=== PATIENT | female | born 1975 ===

== ENCOUNTER 2016-11-03 09:11 | Emergency (ER) | payer MEDICAID, OTHER ==
[2016-11-03 09:11] VITALS: BMI 33.6
[2016-11-03 09:18] VITALS: BP 101/62; PULSE 68; RESP 16; TEMP 97.1; O2SAT 99
--- NOTE | 2016-11-03 09:56 | ED PDOC ---
HPI: Abdomen Time Seen by Provider: 11/03/16 09:27 Chief Complaint (Nursing): Abdominal Pain Chief Complaint (Provider): Abdominal Pain History Per: Patient History/Exam Limitations: no limitations Onset/Duration Of Symptoms: Hrs Outside of [place] travel?: No Current Symptoms Are (Timing): Still Present Location Of Pain/Discomfort: Periumbilical Quality Of Discomfort: "Pain" Associated Symptoms: denies: Nausea, Vomiting Additional Complaint(s): Triny Borja, a 41 year old female, presents to the ED complaining of abdominal pains he has been experiencing since last night. The patient reports that along with her abdominal pain she does have a light back pain. She states that she urinating normally and denies vaginal bleeding, nausea, vomiting and breast tenderness. Patient is seen at [facility] practice clinic. Abnormal Vaginal Bleeding: No Last Menstral Period: September 21 : 2 Para: 2 Miscarriage: 0 Past Medical History Reviewed: Historical Data, Nursing Documentation, Vital Signs Vital Signs: Last Vital Signs Temp 97.1 F L 11/03/16 09:15 Pulse 68 11/03/16 09:15 Resp 16 11/03/16 09:15 BP 101/62 11/03/16 09:15 Pulse Ox 99 11/03/16 09:59 - Medical History PMH: Chronic Kidney Disease Denies: HIV - Surgical History Surgical History: No Surg Hx - Family History Family History: States: Unknown Family Hx - Immunization History Hx Tetanus Toxoid Vaccination: No Hx Influenza Vaccination: No Hx Pneumococcal Vaccination: No - Home Medications Home Medications: Ambulatory Orders Medication Instructions Recorded Vit37/Iron/Folic Acid 1 ctb PO DAILY #30 ctb 11/03/16 [Prenata Chewable Tablet] - Allergies Allergies/Adverse Reactions: Allergies Allergy/AdvReac Type Severity Reaction Status Date / Time No Known Allergies Allergy Verified 10/23/14 14:08 Review of Systems Gastrointestinal: Positive for: Abdominal Pain. Negative for: Nausea, Vomiting Genitourinary Female: Negative for: Vaginal Bleeding Musculoskeletal: Positive for: Back Pain Physical Exam - Reviewed Nursing Documentation Reviewed: Yes Vital Signs Reviewed: Yes - Physical Exam Appears: Positive for: Non-toxic, No Acute Distress Cardiovascular/Chest: Positive for: Regular Rate, Rhythm, Chest Non Tender. Negative for: Tachycardia Respiratory: Positive for: Normal Breath Sounds. Negative for: Wheezing, Respiratory Distress Gastrointestinal/Abdominal: Positive for: Bowel Sounds, Soft, Tenderness (Mild suprapubic tenderness). Negative for: Guarding, Rebound Neurologic/Psych: Positive for: Alert, Oriented, Gait - ECG O2 Sat by Pulse Oximetry: 99 (RA) Pulse Ox Interpretation: Normal Medical Decision Making Medical Decision Makin Initial Impression: 41 year old female presenting with abdominal pain Initial Impression: * Upreg * Udip * Reevaluation Scribe Attestation Documented by Ewa Wilder acting as a scribe for Italia Drake MD. Provider Attestation: All medical record entries made by the Scribe were at my direction and personally dictated by me. I have reviewed the chart and agree that the record accurately reflects my personal performance of the history, physical exam, medical decision making, and the department course for this patient. I have also personally directed, reviewed, and agree with the discharge instructions and disposition. Disposition - Clinical Impression Clinical Impression: test positive - Patient ED Disposition Is Patient to be Admitted: No Doctor Will See Patient In The: Office Counseled Patient/Family Regarding: Diagnosis, Need For Followup, Rx Given - Disposition Referrals: [facility] [Outside] [facility] [Outside] [facility] [Outside] Disposition: Routine/Home Disposition Time: 09:45 Condition: STABLE Prescriptions: Vit37/Iron/Folic Acid [Prenata Chewable Tablet] 1 ctb PO DAILY #30 ctb Instructions: (ED) Print Language: YAKUT - POA Present On Arrival: None
== END 2016-11-03 10:12 | disposition home or self-care (01) ==
LOC: H.ER 09:11
DX: Z32.01 Encounter for pregnancy test, result positive (principal)

== ENCOUNTER 2016-11-05 12:10 | Emergency (ER) | payer OTHER ==
[2016-11-05 12:15] VITALS: TEMP 98
[2016-11-05 12:16] VITALS: BMI 38.7
[2016-11-05 13:04] LABS: BASO # 0.1 K/uL (0.0-0.2); BASO % 0.8 % (0.0-2.0); EOS # 0.2 K/uL (0.0-0.7); EOS % 1.9 % (0.0-4.0); HEMOGLOBIN 10.4 g/dL (12.0-16.0); LYMPH # 2.2 K/uL (1.0-4.3); LYMPH % 23.6 % (20.0-40.0); MEAN CELL VOLUME 69.2 fl (81.0-99.0); MEAN CORPUSCULAR HEMOGLOBIN 21.8 pg (27.0-31.0); MEAN CORPUSCULAR HGB CONC 31.6 g/dL (33.0-37.0); MEAN PLATELET VOLUME 9.8 fl (7.2-11.7); MONO # 0.7 K/uL (0.0-0.8); MONO % 7.1 % (0.0-10.0); NEUT # 6.2 K/uL (1.8-7.0); NEUT % 66.6 % (50.0-75.0); NRBC % 0.1 % (0.0-0.0); RBC 4.78 Mil/uL (3.80-5.20); RED CELL DISTRIBUTION WIDTH 20.5 % (11.5-14.5); WHITE BLOOD COUNT 9.3 K/uL (4.8-10.8)
[2016-11-05 13:32] LABS: INR 1.1 (0.9-1.2); PARTIAL THROMBOPLASTIN TIME 32.2 Seconds (25.6-37.1); PROTHROMBIN TIME 12.1 Seconds (9.8-13.1)
[2016-11-05 13:45] LABS: ALB/GLOB RATIO 1.3 (1.0-2.1); ALBUMIN 4.4 g/dL (3.5-5.0); ALT/SGPT 53 U/L (9-52); AST/SGOT 39 U/L (14-36); BLOOD UREA NITROGEN 11 mg/dl (7-17); CALCIUM 8.8 mg/dL (8.4-10.2); GFR AFRICAN-AMERICAN > 60; GFR NON-AFRICAN AMERICAN > 60
--- NOTE | 2016-11-05 13:54 | ED PDOC ---
HPI: Abdomen Time Seen by Provider: 11/05/16 12:23 Chief Complaint (Nursing): Abdominal Pain Chief Complaint (Provider): Abdominal Pain History Per: Patient History/Exam Limitations: no limitations Onset/Duration Of Symptoms: Hrs Current Symptoms Are (Timing): Still Present Additional Complaint(s): 41 y/o female, at 6 weeks who presents to the emergency department with a lower abdominal pain and vaginal bleeding only when wiping since this morning, 11/05/2016. Denies care, hematuria, and dysuria. PMD: Dr.Steven Zay Reyna MD Past Medical History Reviewed: Historical Data, Nursing Documentation, Vital Signs Vital Signs: Last Vital Signs Temp 98 F 11/05/16 12:24 Pulse 71 11/05/16 12:24 Resp 20 11/05/16 12:24 BP 124/72 11/05/16 12:24 Pulse Ox 100 11/05/16 15:37 - Medical History PMH: Chronic Kidney Disease Denies: HIV - Surgical History Surgical History: No Surg Hx - Family History Family History: States: Unknown Family Hx - Immunization History Hx Tetanus Toxoid Vaccination: No Hx Influenza Vaccination: No Hx Pneumococcal Vaccination: No - Home Medications Home Medications: Ambulatory Orders Medication Instructions Recorded Vit37/Iron/Folic Acid 1 ctb PO DAILY #30 ctb 11/03/16 [Prenata Chewable Tablet] - Allergies Allergies/Adverse Reactions: Allergies Allergy/AdvReac Type Severity Reaction Status Date / Time No Known Allergies Allergy Verified 10/23/14 14:08 Review of Systems ROS Statement: Except As Marked, All Systems Reviewed And Found Negative Gastrointestinal: Positive for: Abdominal Pain (Lower region) Genitourinary Female: Positive for: Vaginal Bleeding (only with wiping). Negative for: Dysuria, Hematuria Physical Exam - Reviewed Nursing Documentation Reviewed: Yes Vital Signs Reviewed: Yes - Physical Exam Appears: Positive for: Non-toxic, No Acute Distress Head Exam: Positive for: ATRAUMATIC, NORMAL INSPECTION Skin: Positive for: Normal Color, Warm, Dry Eye Exam: Positive for: Normal appearance. Negative for: Conjunctival injection Neck: Positive for: Normal, Supple Cardiovascular/Chest: Positive for: Regular Rate, Rhythm. Negative for: Murmur Respiratory: Positive for: Normal Breath Sounds. Negative for: Accessory Muscle Use, Respiratory Distress Gastrointestinal/Abdominal: Positive for: Soft, Tenderness (Suprapubic tenderness). Negative for: Normal Exam, Guarding, Rebound Neurologic/Psych: Positive for: Alert, Oriented - Laboratory Results Result Diagrams: 11/05/16 12:55 11/05/16 12:55 - ECG O2 Sat by Pulse Oximetry: 100 (RA) Pulse Ox Interpretation: Normal - CT Scan/US Pelvic ultrasound Other Rad Studies (CT/US): Radiology Report Reviewed (1. Single intrauterine gestational sac with mean gestational age of 5 weeks and 6 days. Estimated date of delivery by ultrasound is 07/02/2017. The ultrasound dates correspond with the clinical dates. heart rate is not documented on the current examination likely related to early gestation. Clinical and imaging follow-up is advised to confirm viability. 2. 3.3 cm intramural posterior fundal fibroid to the right. 3. 9 x 8 x 11 mm presumable perigestational/subchorionic hemorrhage superior to the gestational sac. Clinical and imaging follow-up is advised.) Medical Decision Making Medical Decision Making: Time: 12:39 Initial impression: Abdominal Pain Initial plan: --OB Preg 1st Tri & OB transvag (US) --Prothrombin Time --Partial Thromboplastin --ED Urine --ED Urine Dipstick --COMP Metabolic Panel --Beta-HCG, Quantitative --Type and Screen --Reevaluation Time: 15:30 --Ultrasound FINDINGS: UTERUS: Gestational sac: Single intrauterine gestation. pole and yolk sac are identified. Heart rate: Not documented on the current examination. age (Ultrasound estimated): 5 weeks and 6 days Date of delivery (Ultrasound estimated) : 07/02/2017 Uterus measures 10.0. x 6.5 x 7.4 cm. There is in a 9 x 8 x 11 mm anechoic area superior to the gestational sac. There is a 3.3 x 3.0 x 2.6 cm intramural posterior fundal fibroid on the right. CERVIX: Long and closed. No cervical abnormality seen. RIGHT OVARY: Measures 2.9 x 3.4 x 2.8 cm. No mass lesion. Normal flow. There is a 2.2 cm corpus luteum cyst. LEFT OVARY: Not visualized. FREE FLUID: There is small amount of free fluid in the pelvis. OTHER FINDINGS: None. IMPRESSION: 1. Single intrauterine gestational sac with mean gestational age of 5 weeks and 6 days. Estimated date of delivery by ultrasound is 07/02/2017. The ultrasound dates correspond with the clinical dates. heart rate is not documented on the current examination likely related to early gestation. Clinical and imaging follow-up is advised to confirm viability. 2. 3.3 cm intramural posterior fundal fibroid to the right. 3. 9 x 8 x 11 mm presumable perigestational/subchorionic hemorrhage superior to the gestational sac. Clinical and imaging follow-up is advised. Time: 15:34 Upon provider reevaluation patient is feeling better, is medically stable, and requires no further treatment in the ED at this time. Patient will be discharged home. Counseling was provided and all questions were answered regarding diagnosis and need for follow [facility] with [facility]. There is agreement to discharge plan. Return if symptoms persist or worsen. Clinical Impression: Threatened and subchorionic hemorrhage in first trimester Scribe Attestation: Documented by Bianca Ro, acting as a scribe for Shari Gay MD. Provider Scribe Attestation: All medical record entries made by the Scribe were at my direction and personally dictated by me. I have reviewed the chart and agree that the record accurately reflects my personal performance of the history, physical exam, medical decision making, and the department course for this patient. I have also personally directed, reviewed, and agree with the discharge instructions and disposition. Disposition - Clinical Impression Clinical Impression: Threatened , Subchorionic hemorrhage in first trimester - Patient ED Disposition Is Patient to be Admitted: No Counseled Patient/Family Regarding: Diagnosis, Need For Followup - Disposition [facility]errals: [facility] [Outside] Disposition: Routine/Home Disposition Time: 15:34 Condition: STABLE Additional Instructions: TYLENOL NEEDED FOR PAIN. Instructions: Threatened Miscarriage (ED), Subchorionic Hemorrhage (ED) Print Language: IRANIAN
--- NOTE | 2016-11-05 15:32 | US ---
PROCEDURE: OB Pelvic Ultrasound HISTORY: Abdominal pain COMPARISON: None available. FINDINGS: UTERUS: Gestational sac: Single intrauterine gestation. pole and yolk sac are identified. Heart rate: Not documented on the current examination. age (Ultrasound estimated): 5 weeks and 6 days Date of delivery (Ultrasound estimated) : 07/02/2017 Uterus measures 10.0. x 6.5 x 7.4 cm. There is in a 9 x 8 x 11 mm anechoic area superior to the gestational sac. There is a 3.3 x 3.0 x 2.6 cm intramural posterior fundal fibroid on the right. CERVIX: Long and closed. No cervical abnormality seen. RIGHT OVARY: Measures 2.9 x 3.4 x 2.8 cm. No mass lesion. Normal flow. There is a 2.2 cm corpus luteum cyst. LEFT OVARY: Not visualized. FREE FLUID: There is small amount of free fluid in the pelvis. OTHER FINDINGS: None. IMPRESSION: 1. Single intrauterine gestational sac with mean gestational age of 5 weeks and 6 days. Estimated date of delivery by ultrasound is 07/02/2017. The ultrasound dates correspond with the clinical dates. heart rate is not documented on the current examination likely related to early gestation. Clinical and imaging follow-up is advised to confirm viability. 2. 3.3 cm intramural posterior fundal fibroid to the right. 3. 9 x 8 x 11 mm presumable perigestational/subchorionic hemorrhage superior to the gestational sac. Clinical and imaging follow-up is advised.
[2016-11-05 15:53] VITALS: BP 114/69; PULSE 73; RESP 18; O2SAT 99
== END 2016-11-05 15:53 | disposition home or self-care (01) ==
LOC: H.ER 12:10
DX: O20.8 Other hemorrhage in early pregnancy (principal); O20.0 Threatened abortion

== ENCOUNTER 2018-01-22 09:06 | Inpatient (IN) | payer MEDICAID, SELFPAY ==
[2018-01-22 09:32] VITALS: BMI 40.7
[2018-01-22] MEDS ORDERED: Phenylephrine 10 mg/ml Inj ONE ×2 (09:45→09:48)
[2018-01-22] MEDS ORDERED: Lactated Ringer's 1,000 ML IV ONE (09:47)
[2018-01-22] MEDS ORDERED: ceFAZolin IV 2 gm in Dextrose 2 GM/50 ML BAG IVPB ONE (09:47)
[2018-01-22] MEDS ORDERED: Oxytocin 30 UNIT 30 UNITS/500 ML BAG IV ONE ×2 (09:50→13:27)
[2018-01-22] MEDS ORDERED: OXYTOCIN/0.9 % NS 20 UNIT/1,000 ML BAG IV SCH (10:00)
[2018-01-22] MEDS ORDERED: Lactated Ringer's 1,000 ML IV SCH ×3 (10:15→19:28)
[2018-01-22 10:27] LABS: BASO # 0.1 K/uL (0.0-0.2); BASO % 0.5 % (0.0-2.0); EOS # 0.1 K/uL (0.0-0.7); EOS % 1.2 % (0.0-4.0); HEMOGLOBIN 12.3 g/dL (12.0-16.0); LYMPH # 1.7 K/uL (1.0-4.3); LYMPH % 15.9 % (20.0-40.0); MEAN CELL VOLUME 78.5 fl (81.0-99.0); MEAN CORPUSCULAR HEMOGLOBIN 25.8 pg (27.0-31.0); MEAN CORPUSCULAR HGB CONC 32.8 g/dL (33.0-37.0); MEAN PLATELET VOLUME 10.7 fl (7.2-11.7); MONO # 0.6 K/uL (0.0-0.8); MONO % 5.8 % (0.0-10.0); NEUT % 76.6 % (50.0-75.0); NRBC % 0.1 % (0.0-0.0); RBC 4.78 Mil/uL (3.80-5.20); RED CELL DISTRIBUTION WIDTH 25.8 % (11.5-14.5); WHITE BLOOD COUNT 10.5 K/uL (4.8-10.8)
[2018-01-22] MEDS ORDERED: Succinylcholine 200 mg/10 ml Inj IV ONE (12:05)
[2018-01-22] MEDS ORDERED: Propofol 10 mg/ml Inj (20 ML) ONE (12:06)
[2018-01-22] MEDS ORDERED: Rocuronium 10 mg/ml (5 ml) ONE (12:14)
[2018-01-22] MEDS ORDERED: Neostigmine 1:1000 (1 mg/ml) Inj ONE (12:19)
[2018-01-22] MEDS ORDERED: Sevoflurane - Inhalation Anesthetic Liq (250 ml) ONE (12:42)
[2018-01-22] MEDS ORDERED: Lidocaine 2% PF (10 ml) Amp ONE (13:09)
[2018-01-22] MEDS ORDERED: Esmolol 100 mg/10ml Inj IV ONE (13:17)
[2018-01-22] MEDS ORDERED: Oxycodone/Acetaminophen 5/325 mg Tab PO PRN (13:27)
[2018-01-22] MEDS ORDERED: Bisacodyl 5mg EC Tab PO PRN ×2 (13:27→19:28)
[2018-01-22] MEDS ORDERED: DiphenhydrAMINE 50 mg/ml Inj IVP PRN ×2 (13:54→19:28)
[2018-01-22] MEDS ORDERED: ceFAZolin IV 2 gm in Dextrose 0 GM/0 ML BAG IVPB ONE (15:47)
[2018-01-22] MEDS ORDERED: Simethicone 80 mg Chewtab PO SCH (16:00)
[2018-01-22] MEDS: Simethicone 80 mg Chewtab PO SCH (21:27)
[2018-01-22] MEDS: Lactated Ringer's 1,000 ML IV SCH (21:58)
--- NOTE | 2018-01-23 00:46 | OP ---
PROCEDURE DATE: 01/22/2018 PREOPERATIVE DIAGNOSES: Intrauterine at 39 weeks, history of previous section, spontaneous rupture of membranes. POSTOPERATIVE DIAGNOSES: Intrauterine at 39 weeks, history of previous section, spontaneous rupture of membranes. OPERATION PERFORMED: Repeat low-flap transverse section via Pfannenstiel skin incision with bilateral tubal ligation. SURGEON: Bruce Yip MD SOLUTIONS ARCHITECT: ESTIMATED BLOOD LOSS: 1000 mL. IV FLUID INTAKE: The patient received approximately 2 L of D5 LR intraoperatively. URINE OUTPUT: Approximately 200 mL of clear urine. OPERATIVE FINDINGS: Baby boy, vertex presentation, Apgars 9 and 9, weighing 4210 g. Normal uterus, tubes, and ovaries were identified. DESCRIPTION OF PROCEDURE: After informed consent was obtained, the patient was taken to the operating room where she was given spinal anesthesia. She was prepped and draped in the usual sterile fashion. Anesthesia was evaluated and was noted to be inadequate. The patient was then given general. A Pfannenstiel skin incision was then made with a scalpel, carried down to the underlying layer of fascia. The fascia was nicked in the midline. The fascial incision was extended laterally with curved Ram scissors. Superior aspect of the fascial incision was then grasped with Alysha clamps, elevated up, and the rectus muscles were dissected off using both sharp and blunt dissections. Attention was then turned to the inferior aspect of the fascial incision, which in a similar fashion, was grasped with Alysha clamps, elevated up, and the rectus muscles were dissected off using both sharp and blunt dissections. The rectus muscles were then in the midline. The peritoneum was identified and entered sharply with Metzenbaum scissors. The peritoneal incision was then extended superiorly and inferiorly with good visualization of the bladder. The bladder blade was inserted. The vesicouterine peritoneum was identified and entered with Metzenbaum scissors. The incision was then extended laterally. The bladder flap was created digitally. The bladder blade was then re-adjusted, and a low transverse incision was made with the scalpel. The incision was then extended laterally. The was then delivered atraumatically. The nose and mouth were suctioned with DeLee suction trap. The cord was clamped and cut. The infant was handed off to the awaiting pediatricians. The placenta was then removed manually. The uterus was exteriorized and cleared of all clots and debris. The uterine incision was repaired with 0 Vicryl in a running-locked fashion. Second layer of the same suture was used to obtain excellent hemostasis. Attention was then turned to the fallopian tube. It was grabbed with a Adan. A knuckle of tube was created. It was then suture ligated with 0 chromic. The knuckle was excised using Metzenbaum scissors, and the tubal stumps were cauterized. Similar procedure was performed on the left. The uterus was then returned to the abdomen. Fallopian tubes were examined and noted to be hemostatic. The abdomen was copiously irrigated. The irrigant was removed with a suction device. The gutters were then cleared of all clots and debris. The peritoneum was then closed with a 2-0 Vicryl in a running fashion. The muscle was reapproximated with 0 Vicryl in an interrupted fashion. The skin was closed with 3-0 on a Erik needle. The fascia was closed with 0 Vicryl in a running fashion. All sponge, lap, needle, and instrument counts were correct x2. The patient was taken to the recovery room in awake and stable condition. Bruce Yip MD
[2018-01-23] MEDS: Lactated Ringer's 1,000 ML IV SCH (05:41)
[2018-01-23] MEDS ORDERED: Influenza Vaccine 60 MCG/0.5 ML SYR (3 yr & up) IM ONE (06:31)
[2018-01-23 08:02] LABS: HEMOGLOBIN 9.6 g/dL (12.0-16.0); MEAN CELL VOLUME 79.3 fl (81.0-99.0); MEAN CORPUSCULAR HEMOGLOBIN 26.6 pg (27.0-31.0); MEAN CORPUSCULAR HGB CONC 33.6 g/dL (33.0-37.0); RBC 3.59 Mil/uL (3.80-5.20); RED CELL DISTRIBUTION WIDTH 25.3 % (11.5-14.5); WHITE BLOOD COUNT 8.6 K/uL (4.8-10.8)
[2018-01-23] MEDS ORDERED: Multivitamin With Minerals Tab PO SCH (09:00)
[2018-01-23] MEDS: Simethicone 80 mg Chewtab PO SCH ×4 (09:01→22:37)
[2018-01-23] MEDS: Multivitamin With Minerals Tab PO SCH (09:01)
[2018-01-23] MEDS: Oxycodone/Acetaminophen 5/325 mg Tab PO PRN ×2 (16:12→20:17)
[2018-01-24] MEDS: Oxycodone/Acetaminophen 5/325 mg Tab PO PRN ×5 (01:37→23:54)
[2018-01-24] MEDS: Simethicone 80 mg Chewtab PO SCH ×4 (06:24→22:33)
[2018-01-24] MEDS: Multivitamin With Minerals Tab PO SCH (08:24)
--- NOTE | 2018-01-24 10:10 | OBPPN ---
Datetime: 01/24/2018 04:56 PP Pain Prov: Within normal limits PP Nausea Prov: Denies PP Flatus Prov: Yes PP BM Prov: No PP Breasts Prov: Not Done PP Heart Prov: Normal PP Lungs Prov: Normal PP Abdomen/Uterus Prov: Normal PP Lochia Prov: Normal PP Vulva/Perineum Prov: Not Done PP CVA Tenderness Prov: Normal PP Extremities Prov: Normal PP C/S Incision Prov: Normal PP Progress Prov: Not Applicable PP Impression Prov: Normal progression PP Plan Prov: Continue present management PP Progress Note Prov: 42 y/o , 39.1 wks, S/P repeat C section on POD 2 Patient seen and evaluated at bedside during morning rounds. Abdominal pain significantly improved since yesterday. Passing flatus but no BM yet. Tolerating diet well PO. Ambulating without difficult ies. Denies any fever, chills, N/V, headache, dysuria. As per urine still darker/slightly red . paitent received flu vaccine yesterday. O: VSS, afebrile GEN: NAD Cardio: RRR, S1S2, no murmurs Lungs: CTA B/L, no wheezing Abdomen: BS+, generalized tenderness, fundus at umbilicus, firm, Incision site dry and intact Ext: No edema, calves non-tender Neuro/psych: AAOx3 H/H (post ): 9.6/28.5 A/P: 42 y/o , 39.1 wks, S/P repeat C section on POD 2 with normal progression. - Encourage - Continue w/ ambulation - diet was tolerated - Ibuprofen for mild pain, percocet and toradol for mod to severe pain - Continue with mylicon and dulcolax prn - anticipated D/C tomorrow 01/25/18 Patient seen and examined by me this am. Agree with above note. Continue pain meds as needed. Case discussed with attending Isael shannon, PGY1 Vital Signs Provider PP: Reviewed; Within Normal Limits
[2018-01-25] MEDS: Oxycodone/Acetaminophen 5/325 mg Tab PO PRN (04:20)
[2018-01-25] MEDS: Simethicone 80 mg Chewtab PO SCH ×3 (04:23→10:47)
[2018-01-25] MEDS: Multivitamin With Minerals Tab PO SCH (08:14)
[2018-01-25 18:01] VITALS: BP 124/77; PULSE 87; RESP 20; TEMP 98.2; O2SAT 99
--- NOTE | 2018-01-26 18:56 | OBPPN ---
Datetime: 01/25/2018 07:14 PP Pain Prov: Within normal limits PP Nausea Prov: Denies PP Flatus Prov: Yes PP BM Prov: Yes PP Breasts Prov: Not Done PP Heart Prov: Normal PP Lungs Prov: Normal PP Abdomen/Uterus Prov: Normal PP Lochia Prov: Normal PP Vulva/Perineum Prov: Not Done PP CVA Tenderness Prov: Normal PP Extremities Prov: Normal PP C/S Incision Prov: Normal PP Progress Prov: Normal PP Impression Prov: Normal progression PP Plan Prov: Continue present management PP Impression Other Prov: ? hematuria PP Progress Note Prov: 42 y/o , 39.1 wks, S/P repeat C section on POD 2 Patient seen and evaluated at bedside. Abdominal pain significantly improved and controlled with p ercocet. Passing flatus and BM yesterday. Tolerating diet well PO. Patient Ambulating without difficu lties. Patient's still reports hematuria with almost every urination. Denies any fever, chill s, N/V, headache, dysuria. paitent received flu vaccine yesterday. O: VSS, afebrile GEN: NAD Cardio: RRR, S1S2, no murmurs Lungs: CTA B/L, no wheezing Abdomen: BS+, generalized tenderness, fundus at umbilicus, firm, Incision site dry and intact Ext: No edema, calves non-tender Neuro/psych: AAOx3 H/H (post ): 9.6/28.5 A/P: 42 y/o , 39.1 wks, S/P repeat C section on POD 2 with normal progression. - Encourage - Continue w/ ambulation - diet was tolerated - Ibuprofen for mild pain, percocet and toradol for mod to severe pain - Continue with mylicon and dulcolax prn - anticipated D/C today 01/25/18 Case discussed with attending Isael shannon, PGY1 Attending Note: Patient was discussed with the Resident and I agree with the above. Vital Signs Provider PP: Reviewed; Within Normal Limits
== END 2018-01-25 13:17 | disposition home or self-care (01) | DRG 766 ==
LOC: H.EROB2 09:06 → H.L&D 09:28 → H.EROB2 09:48 → H.L&D 09:49 → H.OB/GYN 17:15
PROVIDERS: ADMIT Obstetrics & Gynecology Gynecology; ATTEND Obstetrics & Gynecology Gynecology
PROC: 10D00Z1 Extraction of Products of Conception, Low, Open Approach (ICD-10-PCS; principal; 2018-01-22)
PROC: 0UB70ZZ Excision of Bilateral Fallopian Tubes, Open Approach (ICD-10-PCS; 2018-01-22)
PROC: 4A1HXCZ Monitoring of Products of Conception, Cardiac Rate, External Approach (ICD-10-PCS; 2018-01-22)
DX: O34.211 Maternal care for low transverse scar from previous cesarean delivery (principal); Z3A.39 39 weeks gestation of pregnancy; Z37.0 Single live birth; Z30.2 Encounter for sterilization; O09.523 Supervision of elderly multigravida, third trimester